=== PATIENT | male | born 1980 | race Caucasian/White ===

== ENCOUNTER 2022-11-12 13:43 | Emergency (ER) | payer OTHER, MEDICAID, SELFPAY ==
[2022-11-12 13:45] VITALS: BP 127/84; PULSE 70; RESP 14; TEMP 36.6; O2SAT 93; BMI 32.0
--- NOTE | 2022-11-12 13:58 | RAD_ITS ---
EXAM: XR LEFT HAND COMPLETE, 3 OR MORE VIEWS CLINICAL INDICATION: injury -- reported fx 3 months ago TECHNIQUE: Frontal, lateral and oblique views of the left hand. COMPARISON: No relevant prior studies available. FINDINGS: BONES/JOINTS: Fracture of the triquetrum. Fracture of the head of the metacarpal bone. Fracture of the head of the fourth metacarpal bone. Preservation of the joint space. No sclerotic or destructive changes observed. SOFT TISSUES: Unremarkable. No soft tissue swelling or gas. No radiopaque foreign body. RAD/Hand Min 3 Views IMPRESSION: Fracture of the triquetrum. Fracture of the head of the metacarpal bone. Fracture of the head of the fourth metacarpal bone. Electronically Signed: Matt Padilla MD at 15:02 EDT ,
--- NOTE | 2022-11-12 13:58 | RAD_ITS ---
STUDY: XR Wrist Min 3 Views REASON FOR EXAM: Male, 48 years old. injury TECHNIQUE: XR Wrist Min 3 Views LEFT COMPARISON: None FINDINGS: There are no acute findings of the visualized distal radius and ulna. There are no acute findings of the radiocarpal articulation. Normal distal radioulnar articulation. Fracture of the triquetrum. Fracture of the head of the metacarpal bone. Fracture of the head of the fourth metacarpal bone. Normal carpal articulations. There are no acute findings of the carpometacarpal articulation of the thumb. Normal second through fifth carpometacarpal articulations. There are no acute findings of the visualized metacarpal bones. There is non specific soft tissue swelling. RAD/Wrist min 3 Views IMPRESSION: Fracture of the triquetrum. Fracture of the head of the metacarpal bone. Fracture of the head of the fourth metacarpal bone. Electronically Signed: Matt Padilla MD at 15:01 EDT ,
[2022-11-12] MEDS: oxyCODONE 5 MG Tablet PO (14:17)
--- NOTE | 2022-11-12 14:31 | EX.ED.UPPERE ---
HPI History of Present Illness Chief Complaint: Upper Extremity Injury Informant: patient and spouse/S.O. Narrative Narrative: Patient presents here for evaluation for continued left hand pain with improved swelling. Moved to the area in the last couple months. He states this past July had a fall down steps he broke his right wrist and left hand. He was seen by orthopedics at [facility]. He had surgery to his wrist stating there was tendon injuries. He is still healing from this. He cannot recall the surgeon's name. He states he had a fracture to his left hand and was recommended surgery but did not get it. 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 He could not state exactly how. He states there is significant swelling and bruising that have subsided. He was finally convinced to come here for evaluation by his significant other in the room. States he was on Percocets post his surgery. He has not taken any medicines today. Prior similar symptoms: Yes [facility] Medical History (Updated 11/12/22 @ 15:[address] Otf Shah DO) Fracture of triquetrum of left wrist Home Medications oxycodone-acetaminophen 5 mg-325 mg tablet (Percocet) 1 tab PO Q6H pain 3 days #12 tabs 11/12/22 [Rx Last Taken Unknown] Allergy/AdvReac Type Severity Reaction Status Date / Time No Known Allergies Allergy Verified 11/12/22 13:45 Surgical History History of hand surgery Social History Smoking Status: Current every day smoker tobacco type: cigarettes ROS ROS ED Constitutional Constitutional ED: Denies chills, fever(s) or sweats Eyes Eyes: Denies change in vision ENT ENT ED: Denies dysphagia or sore throat Cardiovascular Cardiovascular: Denies chest pain, leg edema, palpitations or racing heartbeat Respiratory/Chest Respiratory/Chest: Denies cough, dyspnea or dyspnea on exertion Gastrointestinal Gastrointestinal: Denies abdominal pain, diarrhea, nausea or vomiting Genitourinary Genitourinary ED: Denies dysuria, hematuria or urinary frequency Musculoskeletal Musculoskeletal: Reports extremity pain and other Details: Left hand pain ; Denies back pain or neck pain Integumentary Denies rash or wounds Neurologic Neurologic: Denies headache(s), paresthesias or weakness EXAM Physical Exam Const Vital Signs: 11/12/22 13:45 Temperature 98 F Temperature Source Temporal Pulse Rate 70 Respiratory Rate 14 Blood Pressure 127/84 H Blood Pressure Mean 98 Pulse Ox 93 Oxygen Delivery Method Room Air Positive well nourished and well developed General Appearance ED: well developed and NAD HEENT Reports moist mucous membranes normocephalic and atraumatic Eyes PERRL, EOMs intact bilaterally and conjunctivae normal General Eye ED: Yes normal appearance of both eyes Neck no lymphadenopathy and supple General: Negative for tenderness Chest Wall Chest: Negative for tenderness Resp normal respiratory effort and normal air movement Effort and Inspection: symmetric chest movement; Negative for respiratory distress Cardio regular rate, regular rhythm and no murmurs Peripheral Pulses: pulses 2+ throughout GI normal to inspection, nondistended, normoactive bowel sounds and non-tender Palpation: Negative for guarding or rebound tenderness present Back/Spine no CVA tenderness and no thoracic nor lumbar tenderness Extremity Extremity Narrative: Left upper extremity: Mild tenderness distal radius there is a healing superficial wound on the volar aspect. No deformities at the wrist. Swelling across the dorsal aspect of the hand tenderness at the distal fourth and fifth metacarpals. No finger tenderness. Skin was intact. Right upper extremity: There is healing scar on the volar aspect distal radius along with palmar aspect of the mid hand. No erythema no drainage. General Extremety ED: Yes edema and tenderness General Extremity: edema Neuro oriented x3 and no sensory deficits noted Sensorium / Orientation: awake and alert Skin no rashes or lesions noted and no wounds MDM MDM MDM Narrative Medical decision making narrative: Interventions / MDM: Differential diagnosis: Hand fracture, hand contusion, wrist fracture Diagnosis considered but do not suspect: N/A My EKG interpretation: N/A Imaging independently reviewed and interpreted by myself: Three-view x-ray of the left wrist: Triquetral fracture there is noted fracture of the distal fourth and fifth meta carpals. Three-view x-ray of the left hand: Fractures noted at the distal fourth and fifth metacarpals. External documents reviewed: N/A Test considered but not ordered:N/A ED course: Patient treated with oxycodone in the ED, x-rays were obtained of the left wrist and hand. Fractures as noted above. Re-evaluation: stable, patient preoccupied with his postsurgical pain. States he wants to follow-up with physicians here. I did reach out discussed with on-call orthopedist Dr. Rush, he states he would follow-up with the hand fracture in the left which would not likely require surgical management. With the right side he states he will likely refer back to his hand surgeon. Discussed this with the patient and significant other. They understand this. They would like follow-up information. He is placed in a modified AP splint due to the triquetral fracture along with the fourth and fifth metacarpal fractures. Velcro wrist splint provided for this right wrist for embolization and symptom control. Prescription for Percocet for symptom control. Outpatient follow-up. Splinting: Nylon sleeve was placed, Kerlix dressing wrist hand and fourth and fifth digits. Padding placed between the fourth and fifth digit. Modified AP splint plaster use for the risk along with along the fourth and fifth digits. Scot wrap used to secure. Neurovascular intact post splinting. Patient tolerated well. Disposition discussed with patient/family/significant other: Case discussed with consulting clinician: N/A This note was generated with [employer] dictation software. It may contain incorrect words, spelling, and punctuation that were not noted in checking the note before signing. Discharge Plan Triage Chief Complaint: Upper Extremity Injury ED Provider: Otf Shah Dx/Rx/DC Orders Clinical Impression: Closed fracture of left hand, Post-operative pain, Fracture of triquetrum of left wrist Instructions: ED Crush Injury, Hand, ED Closed Hand Fracture (Adult), ED Fracture, Wrist, General Prescriptions: New oxycodone-acetaminophen [Percocet] 5-325 mg tablet 1 tab PO Q6H 3 Days Qty: 12 0RF Primary Care Provider: Care Physician,No Primary Referrals: Ezra Rush MD [Med Staff - Active Staff] - 5-7 Days Care Physician,No Primary [Primary Care Provider] - Activity Restrictions/Additional Instructions: Fourth and fifth metatarsal fractures left hand. Triquetrium fraction of your left wrist. Maintain the splint. Provided Velcro splint for your right wrist postsurgery. I discussed with Dr. Rush, he will follow-up with your left hand fractures. He will refer you back to your hand surgeon for your right sided continued symptoms at [facility]. Disposition Disposition: Home, Self Care Discharge Date/Time: 11/12/22 15:58
--- NOTE | 2022-11-12 15:21 | CON.PCM.OR_ITS ---
HPI Consult Data Date of Consult: 11/12/22 HPI Narrative HPI Narrative: CELSO AVILES, is a 42 M who presents for left wrist injury. Apparently had an injury with a horse. Also had fairly recent apparently distal radius fracture surgery by a surgeon in a separate clinic still needs to have follow-up with that complaining about some numbness but no neurologic or infectious concerns for that. [facility] Medical History (Updated 11/12/22 @ 15:22 by Ezra Rush MD) Fracture of triquetrum of left wrist Allergy/AdvReac Type Severity Reaction Status Date / Time No Known Allergies Allergy Verified 11/12/22 13:45 Surgical History History of hand surgery Social History Smoking Status: Current every day smoker tobacco type: cigarettes Vital Signs Vital Signs Vital Signs: 11/12/22 13:45 Temperature 98 F Temperature Source Temporal Pulse Rate 70 Respiratory Rate 14 Blood Pressure 127/84 H Blood Pressure Mean 98 Pulse Ox 93 Oxygen Delivery Method Room Air Weight Weight: 210 lb 12.191 oz Body Mass Index (BMI) 32.0 Physical Exam Narrative per ed provider, nil acute, closed injuries, healing on the right, no need for acute assessment. Radiology Impression Hand X-Ray 11/12/22 13:58 IMPRESSION: Fracture of the triquetrum. Fracture of the head of the metacarpal bone. Fracture of the head of the fourth metacarpal bone. Electronically Signed: Matt Padilla MD at 15:02 EDT , Wrist X-Ray 11/12/22 13:58 IMPRESSION: Fracture of the triquetrum. Fracture of the head of the metacarpal bone. Fracture of the head of the fourth metacarpal bone. Electronically Signed: Matt Padilla MD at 15:01 EDT , Assessment & Plan Assessment/Plan (1) Fracture of triquetrum of left wrist: PLAN: 42-year-old man with a triquetral avulsion fracture. Recommend immobilization in a splint eventually a cast for 6 weeks after the injury, ok to FU with myself in 1-5 days. We discussed this with the ED physician and call me today at 3:20 PM. He is in agreement with the plan. I will not be assessing or treating this man for his postoperative problems for that I recommend he see his original to let them know about the issues there.
== END 2022-11-12 15:58 | disposition home or self-care (01) ==
PROVIDERS: Emergency Provider Emergency Medicine; Visit Provider Emergency Medicine
DX: S62.92XA Unspecified fracture of left hand, initial encounter for closed fracture (principal); G89.18 Other acute postprocedural pain; S62.112A Displaced fracture of triquetrum [cuneiform] bone, left wrist, initial encounter for closed fracture; F17.210 Nicotine dependence, cigarettes, uncomplicated; X58.XXXA Exposure to other specified factors, initial encounter; Y93.K9 Activity, other involving animal care; Y92.79 Other farm location as the place of occurrence of the external cause
CPT/HCPCS: 73110; 73130; 99283